=== PATIENT | female | born 1935 | race Caucasian/White ===

== ENCOUNTER → 2017-07-30 | Outpatient (CLI) | payer MEDICARE, OTHER ==
[2017-07-30 11:01] LABS: ABSOLUTE EOSINOPHILS # (AUTO) 0.1 10^3/uL (0.0-0.6); ABSOLUTE LYMPHOCYTES (AUTO) 2.6 10^3/uL (0.5-4.7); ABSOLUTE MONOCYTES (AUTO) 0.6 10^3/uL (0.1-1.4); ABSOLUTE NEUT (AUTO) 4.8 10^3/uL (1.7-8.2); BASOPHILS % (AUTO) 0.5 % (0-2); HEMATOCRIT 42.4 % (36.0-47.0); HEMOGLOBIN 13.9 g/dL (12.0-15.5); LYMPHOCYTES % (AUTO) 31.7 % (13-45); MEAN CORPUSCULAR HEMOGLOBIN 30.1 pg (27.0-33.4); MEAN CORPUSCULAR HGB CONC 32.9 g/dL (32.0-36.0); MEAN CORPUSCULAR VOLUME 91 fl (80-97); MONOCYTES % (AUTO) 7.9 % (3-13); PLATELET COUNT 221 10^3/uL (150-450); RED BLOOD COUNT 4.63 10^6/uL (3.72-5.28); RED CELL DISTRIBUTION WIDTH 13.6 % (11.5-14.0); SEGMENTED NEUTROPHILS % (AUTO) 58.9 % (42-78); TOTAL CELLS COUNTED % (AUTO) 100 %; WHITE BLOOD COUNT 8.1 10^3/uL (4.0-10.5)
[2017-07-30 11:32] LABS: ALANINE AMINOTRANSFERASE 38 U/L (9-52); ALBUMIN 4.5 g/dL (3.5-5.0); ALKALINE PHOSPHATASE 86 U/L (38-126); ANION GAP 8 (5-19); ASPARTATE AMINO TRANSFERASE 32 U/L (14-36); BILIRUBIN,DIRECT 0.3 mg/dL (0.0-0.4); BILIRUBIN,TOTAL 0.5 mg/dL (0.2-1.3); BLOOD UREA NITROGEN 18 mg/dL (7-20); CALCIUM 9.7 mg/dL (8.4-10.2); CARBON DIOXIDE 34 mmol/L (22-30); CHLORIDE 101 mmol/L (98-107); CHOLESTEROL 256.28 mg/dL (0-200); GLUCOSE 92 mg/dL (75-110); POTASSIUM 4.4 mmol/L (3.6-5.0); SODIUM 143.2 mmol/L (137-145); TOTAL PROTEIN 7.6 g/dL (6.3-8.2); TRIGLYCERIDES 135 mg/dL (<150)
[2017-07-30 11:47] LABS: DIRECT LDL 134 mg/dL (<100)
== END ==
LOC: OD 10:09
PROVIDERS: ATTEND Internal Medicine
DX: I10 Essential (primary) hypertension (principal); E78.5 Hyperlipidemia, unspecified; R53.83 Other fatigue; K21.9 Gastro-esophageal reflux disease without esophagitis; M19.90 Unspecified osteoarthritis, unspecified site
CPT/HCPCS: 36415; 80053; 80061; 84443; 85025

== ENCOUNTER → 2017-08-07 | Outpatient (CLI) | payer MEDICARE, OTHER | LOC: OD 13:44 | PROVIDERS: ATTEND Internal Medicine | DX: E03.9 Hypothyroidism, unspecified (principal) | CPT/HCPCS: 36415; 84443 ==

== ENCOUNTER → 2017-10-14 | Outpatient (CLI) | payer MEDICARE, OTHER | LOC: OD 10:23 | PROVIDERS: ATTEND Internal Medicine | DX: E03.9 Hypothyroidism, unspecified (principal) | CPT/HCPCS: 36415; 84443 ==

== ENCOUNTER → 2018-03-03 | Outpatient (CLI) | payer MEDICARE, OTHER | LOC: OD 13:28 | PROVIDERS: ATTEND Internal Medicine | DX: E03.9 Hypothyroidism, unspecified (principal) | CPT/HCPCS: 36415; 84443 ==

== ENCOUNTER 2018-08-06 14:15 | Inpatient (IN) | payer MEDICARE, OTHER ==
[2018-08-06] MEDS ORDERED: ASPIRIN 81 MG TABLET, CHEWABLE PO ONE (14:55)
--- NOTE | 2018-08-06 15:35 | RADIOLOGY REPORT (SQ) ---
EXAM DESCRIPTION: CHEST SINGLE VIEW COMPLETED DATE/TIME: 08/06/2018 3:26 pm REASON FOR STUDY: chest pain COMPARISON: 05/07/2011 EXAM PARAMETERS: NUMBER OF VIEWS: One view. TECHNIQUE: Single frontal radiographic view of the chest acquired. RADIATION DOSE: NA LIMITATIONS: None. FINDINGS: LUNGS AND PLEURA: Apical scarring. No consolidation or effusions. No pneumothorax. MEDIASTINUM AND HILAR STRUCTURES: No masses. Contour normal. HEART AND VASCULAR STRUCTURES: Heart normal in size. Normal vasculature. BONES: No acute findings. HARDWARE: None in the chest. OTHER: No other significant finding. IMPRESSION: Scarring in the lung apices. No acute findings. TECHNICAL DOCUMENTATION: JOB ID: [id number] [employer]- All Rights Reserved Reading location - IP/workstation name: [email or web address]
[2018-08-06 15:52] LABS: ABSOLUTE EOSINOPHILS # (AUTO) 0.1 10^3/uL (0.0-0.6); ABSOLUTE LYMPHOCYTES (AUTO) 1.8 10^3/uL (0.5-4.7); ABSOLUTE MONOCYTES (AUTO) 0.6 10^3/uL (0.1-1.4); ABSOLUTE NEUT (AUTO) 4.4 10^3/uL (1.7-8.2); BASOPHILS % (AUTO) 0.5 % (0-2); EOSINOPHILS % (AUTO) 0.8 % (0-6); HEMATOCRIT 40.6 % (36.0-47.0); HEMOGLOBIN 13.9 g/dL (12.0-15.5); LYMPHOCYTES % (AUTO) 26.2 % (13-45); MEAN CORPUSCULAR HEMOGLOBIN 31.9 pg (27.0-33.4); MEAN CORPUSCULAR HGB CONC 34.2 g/dL (32.0-36.0); MEAN CORPUSCULAR VOLUME 93 fl (80-97); MONOCYTES % (AUTO) 8.8 % (3-13); PLATELET COUNT 184 10^3/uL (150-450); RED BLOOD COUNT 4.35 10^6/uL (3.72-5.28); RED CELL DISTRIBUTION WIDTH 13.2 % (11.5-14.0); SEGMENTED NEUTROPHILS % (AUTO) 63.7 % (42-78); TOTAL CELLS COUNTED % (AUTO) 100 %; WHITE BLOOD COUNT 6.9 10^3/uL (4.0-10.5)
[2018-08-06 16:15] LABS: ALANINE AMINOTRANSFERASE 21 U/L (9-52); ALBUMIN 4.6 g/dL (3.5-5.0); ALKALINE PHOSPHATASE 76 U/L (38-126); ANION GAP 8 (5-19); ASPARTATE AMINO TRANSFERASE 29 U/L (14-36); BILIRUBIN,DIRECT 0.1 mg/dL (0.0-0.4); BILIRUBIN,TOTAL 0.3 mg/dL (0.2-1.3); BLOOD UREA NITROGEN 20 mg/dL (7-20); CARBON DIOXIDE 36 mmol/L (22-30); CHLORIDE 97 mmol/L (98-107); CREATINE KINASE 83 U/L (30-135); GLUCOSE 102 mg/dL (75-110); POTASSIUM 3.9 mmol/L (3.6-5.0); SODIUM 141.3 mmol/L (137-145); TOTAL PROTEIN 7.3 g/dL (6.3-8.2)
[2018-08-06 16:27] LABS: CREATINE KINASE MB 1.29 ng/mL (<4.55); TROPONIN I 0.013 ng/mL
--- NOTE | 2018-08-06 17:24 | ER Document Report ---
ED Cardiac - General Chief Complaint: Chest Pain Stated Complaint: CHEST PAIN Time Seen by Provider: 08/06/18 14:48 Primary Care Provider: CHANTEL MURDOCK MD [Primary Care Provider] - Follow up as needed Notes: This is a pleasant 83-year-old female patient emergency department chief complaint of chest pain. Patient states that chest pain has been on and off for the last couple of weeks but got worse today. Worse with exertion. States that every time she has had the chest pain she was ambulating. Patient has uncontrolled hypertension with blood pressures as high as 220/120. States that today the pain was in the central portion of her chest and upper abdomen and radiated to her back in a very sharp fashion and then up into both arms and into her neck. States that she has been taking all of her medications as instructed. Has a caregiver. [place] short of breath as well. Did not pass out. Currently symptoms are improved. TRAVEL OUTSIDE OF THE [place] IN LAST 30 DAYS: No - HPI Patient complains to provider of: Chest pain, Chest tightness, Shortness of breath Is the pain a: New problem Chest pain location: Substernal, Under breast Quality of pain: Burning, Sharp Chest pain radiation location: Left shoulder, Right shoulder, Back Severity now: None Severity at worst: Moderate Pain level currently: 2 Chest pain precipitating factors: Physical Exertion Cardiac risk factors: Hypertension Associated symptoms: Shortness of breath Exacerbated by: Activity Relieved by: Rest - Related Data Allergies/Adverse Reactions: sertraline HCl [From Zoloft] Allergy (Unknown, Verified 08/06/18 14:18) prochlorperazine edisylate [From Compazine] Allergy (Verified 08/06/18 14:18) prochlorperazine maleate [From Compazine] Allergy (Verified 08/06/18 14:18) Past Medical History - General Information source: Patient - Social History Smoking Status: Never Smoker Chew tobacco use (# tins/day): No Frequency of alcohol use: None Drug Abuse: None Lives with: Alone Family History: Reviewed & Not Pertinent Patient has suicidal ideation: No Patient has homicidal ideation: No - Past Medical History Cardiac Medical History: Reports: Hx Hypertension Denies: Hx Heart Attack Pulmonary Medical History: Reports: Hx Asthma - ALLERGY RELATED Denies: Hx Tuberculosis Neurological Medical History: Denies: Hx Cerebrovascular Accident, Hx Seizures Renal/ Medical History: Denies: Hx Peritoneal Dialysis GI Medical History: Reports: Hx Gastroesophageal Reflux Disease. Denies: Hx Hepatitis, Hx Hiatal Hernia, Hx Ulcer Psychiatric Medical History: Reports: Hx Depression Infectious Medical History: Denies: Hx Hepatitis Past Surgical History: Reports: Hx Cholecystectomy, Hx Hysterectomy, Hx Tonsillectomy. Denies: Hx Mastectomy, Hx Open Heart Surgery, Hx Pacemaker - Immunizations Hx Diphtheria, Pertussis, Tetanus Vaccination: No - unknown Hx Pneumococcal Vaccination: 05/03/09 Review of Systems - Review of Systems Notes: Constitutional: denies: Chills, Diaphoresis, Fever, Malaise, Weakness EENT: denies: Eye discharge, Blurred vision, Tearing, Double vision, Nose congestion, Nose discharge, Throat swelling, Mouth pain Cardiovascular: denies: Palpitations, Heart racing, Orthopnea,+ Dyspnea, +Chest pain Respiratory: denies: Cough, Hurts to breathe, Wheezing, Shortness of breath Gastrointestinal: denies: Abdominal pain, Diarrhea, Nausea, Vomiting, Black stools, bright red blood in stool Genitourinary: denies: Burning, Dysuria, Discharge, Frequency, Flank pain, [place]rés tur[place] Musculoskeletal: denies: Joint pain, Joint swelling, Muscle pain, Muscle stiffness, back pain Hematologic/Lymphatic: denies: Anemia, Easy bleeding, Easy bruising, Blood clots Neurological/Psychological: denies: Confusion, Dementia, Depression, Loss of consciousness Skin: No lesions, no masses, no skin breakdown, no abscesses Physical Exam - Vital signs Vitals: Temp Pulse Resp BP Pulse Ox 97.6 F 91 17 193/96 H 100 08/06/18 14:24 08/06/18 14:24 08/06/18 14:24 08/06/18 14:24 08/06/18 14:24 Interpretation: Tachycardic, Tachypneic - General General appearance: Appears well, Alert - HEENT Head: Normocephalic, Atraumatic Eyes: Normal Pupils: PERRL - Respiratory Respiratory status: No respiratory distress Chest status: Nontender Breath sounds: Normal Chest palpation: Normal - Cardiovascular Rhythm: Tachycardia Heart sounds: Normal auscultation Murmur: No Notes: Equal blood pressures in the bilateral upper extremities. - Abdominal Inspection: Normal Distension: No distension Bowel sounds: Normal Tenderness: Nontender Organomegaly: No organomegaly Notes: No obvious palpable masses or pulsating masses. - Back Back: Normal, Nontender - Extremities General upper extremity: Normal inspection, Nontender, Normal color, Normal ROM, Normal temperature General lower extremity: Normal inspection, Nontender, Normal color, Normal ROM, Normal temperature, Normal weight bearing. No: Gary's sign - Neurological Neuro grossly intact: Yes Cognition: Normal Orientation: AAOx4 [place] Coma Scale Eye Opening: Spontaneous [place] Coma Scale Verbal: Oriented Michael Coma Scale Motor: Obeys Commands Michael Coma Scale Total: 15 Speech: Normal Motor strength normal: LUE, RUE, LLE, RLE Sensory: Normal - Psychological Associated symptoms: Normal affect, Normal mood - Skin Skin Temperature: Warm Skin Moisture: Dry Skin Color: Normal Course - Re-evaluation Re-evalutation: 08/06/18 18:33 Patient has extremely elevated blood pressure. Blood pressure equal in the upper extremities however based on the fact the patient has this exquisitely high blood pressure with sharpness radiating to her back I am concerned about her aorta. Chest x-ray looks okay but she needs to have an assessment of her aorta to rule out dissection. Currently her pain is much improved. I am going to order a CTA of the chest and aorta to make sure that there is no issues there. First set of labs are unremarkable. We will repeat that at 4-hour intervals. Anticipate patient will likely need to be admitted for hypertensive emergency as well as chest pain. Laboratory 08/06/18 08/06/18 08/06/18 15:33 15:33 15:33 WBC 6.9 RBC 4.35 Hgb 13.9 Hct 40.6 MCV 93 MCH 31.9 MCHC 34.2 RDW 13.2 Plt Count 184 Seg Neutrophils % 63.7 Lymphocytes % 26.2 Monocytes % 8.8 Eosinophils % 0.8 Basophils % 0.5 Absolute Neutrophils 4.4 Absolute Lymphocytes 1.8 Absolute Monocytes 0.6 Absolute Eosinophils 0.1 Absolute Basophils 0.0 Sodium 141.3 Potassium 3.9 Chloride 97 L Carbon Dioxide 36 H Anion Gap 8 BUN 20 Creatinine 0.82 Est GFR ( Amer) > 60 Est GFR (Non-Af Amer) > 60 Glucose 102 Calcium 10.0 Total Bilirubin 0.3 Direct Bilirubin 0.1 Neonat Total Bilirubin Not Reportable Neonat Direct Bilirubin Not Reportable Neonat Indirect Bili Not Reportable AST 29 ALT 21 Alkaline Phosphatase 76 Creatine Kinase 83 CK-MB (CK-2) 1.29 Troponin I 0.013 Total Protein 7.3 Albumin 4.6 08/06/18 20:29 Patient returned back from CT scan and a rapid response was called to the room. Patient apparently passed out when going to the bathroom. Did not fall and hit her head. This was a witnessed syncopal episode. She did not hit the ground. Stat EKG was performed. no signs of significant pathology. CT scan 08/06/18 21:34 Chest X-Ray 08/06/18 14:55 IMPRESSION: Scarring in the lung apices. No acute findings. Abdomen/Pelvis CTA 08/06/18 18:09 IMPRESSION: Small hiatal hernia. Moderate amount of gas and fluid are in the esophagus. There is constipation which may explain apparent functional partial obstruction of the small bowel, versus ileus. No transition point is identified. Narrowing of the AMANDA origin. See additional findings above. Chest/Abdomen CTA 08/06/18 18:09 IMPRESSION: Small hiatal hernia. Moderate amount of gas and fluid are in the esophagus. There is constipation which may explain apparent functional partial obstruction of the small bowel, versus ileus. No transition point is identified. Narrowing of the AMANDA origin. See additional findings above. - Vital Signs Vital signs: Temp Pulse Resp BP Pulse Ox 97.6 F 91 14 149/88 H 95 08/06/18 14:24 08/06/18 14:24 08/06/18 20:50 08/06/18 20:50 08/06/18 20:50 - Laboratory Result Diagrams: 08/06/18 15:33 08/06/18 15:33 Laboratory results interpreted by me: 08/06/18 15:33 Chloride 97 L Carbon Dioxide 36 H Critical Care Note - Critical Care Note Total time excluding time spent on procedures (mins): 45 Comments: Hypertensive, hypotensive, Discharge - Discharge Clinical Impression: Hypertensive emergency, Syncope and collapse Chest pain Qualifiers: Chest pain type: unspecified Qualified Code(s): R07.9 - Chest pain, unspecified Condition: Good Disposition: ADMITTED INPATIENT [facility] Unit Admitted: IMCU Referrals: CHANTEL MURDOCK MD [Primary Care Provider] - Follow up as needed
[2018-08-06] MEDS ORDERED: CLONIDINE HCL 0.1 MG TABLET PO ONE (17:25)
--- NOTE | 2018-08-06 18:13 | EKG REPORT ---
SEVERITY:- ABNORMAL ECG - SINUS RHYTHM LEFT ATRIAL ABNORMALITY : Confirmed by: Jenny Ball MD 06-Aug-2018 18:13:01
[2018-08-06 19:57] LABS: APPEARANCE,URINE CLEAR; BILIRUBIN,URINE NEGATIVE (NEGATIVE); COLOR,URINE STRAW; GLUCOSE, URINE NEGATIVE (NEGATIVE); KETONES,URINE NEGATIVE (NEGATIVE); LEUKOCYTE ESTERASE,URINE NEGATIVE (NEGATIVE); NITRITE,URINE NEGATIVE (NEGATIVE); PROTEIN,URINE NEGATIVE (NEGATIVE); URINE SPECIFIC GRAVITY 1.008; UROBILINOGEN,URINE NEGATIVE mg/dL (<2.0)
--- NOTE | 2018-08-06 20:46 | RADIOLOGY REPORT (SQ) ---
EXAM DESCRIPTION: CT ABDOMEN PELVIS WITHOUT THEN WITH IV CONTRAST COMPLETED DATE/TME: 08/06/2018 18:09 CLINICAL HISTORY: 83 years, Female, Extremely high blood pressure with cP radi to back COMPARISON: CT CHEST ANGIOGRAPHY WITHOUT THEN WITH IV CONTRAST CT abdomen and pelvis with IV contrast. COMPLETED DATE/TME: 08/06/2018 18:09 CLINICAL HISTORY: 83 years, Female, Extremely high blood pressure with cP radi to back COMPARISON: None. TECHNIQUE: Images stored on PACS. All CT scanners at this facility use dose modulation, iterative reconstruction, and/or weight based dosing when appropriate to reduce radiation dose to as low as reasonably achievable (ALARA). [facility]: Dose Right [facility]: CareDose [facility]: Dose Right [facility]: Teradose 4D [facility]: MADS LIMITATIONS: None. PROCEDURE: CLINICAL HISTORY: 83 years Female Extremely high blood pressure with cP radi to back COMPARISON: None. TECHNIQUE: Contiguous axial images were obtained through the chest during the infusion of IV contrast. Reformatted images obtained. MIP reformatted images obtained. This exam was performed according to our department optimization program which includes automated exposure control, adjustment of the mA and/or kv according to patient size and/or use of iterative reconstruction technique. FINDINGS: There is a moderate amount of gas and fluid in the esophagus throughout its visualized length. There is bilateral dependent atelectasis. Gallbladder is surgically absent. There is a small hiatal hernia. The pancreas demonstrates atrophy. There is moderate stool in the colon. There is colonic diverticulosis. Multiple loops of small bowel are mildly dilated and gas-filled. No transition point is seen. There is approximately 70% narrowing of the origin of the AMANDA. There is calcification at the origins of the renal arteries, limiting detail. There is approximately 40% narrowing of the origin of the right renal artery and 20% narrowing of the origin of the left renal artery. No evidence of acute appendicitis. Moderate stool is in the rectum. No other acute abnormality of the abdominal or pelvic viscera. The lungs are otherwise clear. No pneumothorax is seen. Heart size is normal. No pleural effusions. No lymphadenopathy. No PE is seen. No evidence of aortic aneurysm. No other significant abnormality. IMPRESSION: Small hiatal hernia. Moderate amount of gas and fluid are in the esophagus. There is constipation which may explain apparent functional partial obstruction of the small bowel, versus ileus. No transition point is identified. Narrowing of the AMANDA origin. See additional findings above.
[2018-08-06] MEDS ORDERED: NORMAL SALINE 500 ML IV ONE (21:36)
[2018-08-06] MEDS ORDERED: TEMAZEPAM 15 MG CAPSULE PO PRN (22:29)
[2018-08-06] MEDS ORDERED: MAG HYDROX/AL HYDROX/SIMETH SUSP 30 ML UDCUP PO PRN (22:29)
[2018-08-06] MEDS ORDERED: MAGNESIUM HYDROXIDE SUSP 30 ML UDCUP PO PRN (22:29)
[2018-08-06] MEDS ORDERED: LEVALBUTEROL HCL NEB 1.25 MG/3 ML AMPUL NEB PRN (22:35)
[2018-08-06] MEDS ORDERED: MORPHINE SULFATE 10 MG/ML INJ IV PRN ×4 (22:35→23:06)
[2018-08-06] MEDS ORDERED: DIAZEPAM INJ 10 MG/2 ML DISP.SYRIN IV PRN (22:35)
[2018-08-06] MEDS ORDERED: ACETAMINOPHEN 325 MG TABLET PO PRN (22:35)
[2018-08-06] MEDS ORDERED: NITROGLYCERIN 0.4 MG/TAB 25 TAB/BOTTLE SL PRN (22:35)
[2018-08-06] MEDS ORDERED: FAMOTIDINE 20 MG TABLET PO ONE (23:10)
[2018-08-06] MEDS ORDERED: METOCLOPRAMIDE HCL 10 MG TABLET PO ONE (23:10)
[2018-08-06] MEDS ORDERED: MONTELUKAST SODIUM 10 MG TABLET PO ONE (23:10)
[2018-08-06] MEDS ORDERED: HEPARIN SOD (PORCINE) 5,000 UNIT/ML 1 ML SYRINGE SUBCUT ONE (23:10)
--- NOTE | 2018-08-07 00:07 | PDOC H&P ---
History of Present Illness Admission Date/PCP: CHANTEL MURDOCK MD Patient complains of: Chest pain History of Present Illness: RHODA ALBRIGHT is a 83 year old female presented to the emergency room with a 7-day history of intermittent chest pains. She admitted several episodes of chest pain over the last 7 days, occurring once a day at various times usually associated with activity, becoming longer in duration and more intense over time. Her last episode was earlier today prior to coming to the emergency room and was described as a continuous, moderately severe, heavy pressure sensation in her substernal chest and epigastric area with radiation as a sharp, severe pain to her back and then up into her neck and shoulders. The pain generally occurs with activity and is resolved by rest. Her pain was accompanied by dyspnea which also resolved after a short period of rest. She admits a history of previous hypertensive crises but not any prior episodes of chest pain. She has not identified any additional aggravating or alleviating factors for her chest pain. In the emergency room her chest pain was resolved prior to her arrival but she was noted to be significantly hypertensive with a blood pressure of 220/120. During her ER evaluation she suffered a syncopal episode and became hypotensive at that time. Her blood pressure recovered with IV fluids and close observation over a very brief interval. Her initial cardiac enzymes and EKG were negative for myocardial ischemia or injury. Patient was subsequently admitted to the hospital for further evaluation and treatment. Past Medical History Cardiac Medical History: Reports: Hypertension Denies: Atrial Fibrillation, Coronary Artery Disease, DVT, Myocardial Infarction, Pulmonary Embolism Pulmonary Medical History: Reports: Asthma - ALLERGY RELATED Denies: Chronic Obstructive Pulmonary Disease (COPD), Respiratory Failure, Tuberculosis EENT Medical History: Denies: Cataracts, Nose - Nasal polyps Neurological Medical History: Denies: Hemorrhagic CVA, Ischemic CVA, Seizures Endocrine Medical History: Reports: Hypothyroidism Denies: Diabetes Mellitus Type 1, Diabetes Mellitus Type 2, Hyperthyroidism, Obesity Renal/ Medical History: Denies: Chronic Kidney Disease, Nephrolithiasis Malignancy Medical History: Reports: None GI Medical History: Reports: Gastroesophageal Reflux Disease Denies: Cirrhosis, Hepatitis, Hiatal Hernia Musculoskeltal Medical History: Denies: Arthritis, Gout Skin Medical History: Denies: Eczema, Psoriasis Psychiatric Medical History: Reports: Depression Denies: Alcohol Dependency, Substance Abuse, Tobacco Dependency Traumatic Medical History: Reports: None Hematology: Denies: Anemia, Bleeding Tendencies Infectious Medical History: Denies: None Past Surgical History Past Surgical History: Reports: Cholecystectomy, Hysterectomy, Tonsillectomy Social History Information Source: Patient Lives with: Alone Smoking Status: Never Smoker Frequency of Alcohol Use: None Hx Recreational Drug Use: No Drugs: None Hx Prescription Drug Abuse: No - Advance Directive Resuscitation Status: Full Code Surrogate healthcare decision maker:: Her son Omi Family History Family History: Hypertension Parental Family History Reviewed: Yes Children Family History Reviewed: No Sibling(s) Family History Reviewed.: Yes Medication/Allergy Home Medications: Montelukast Sodium [Singulair 10 Mg Tablet] 10 mg PO QHS 05/03/11 Verapamil HCl [Isoptin Sr] 360 mg PO QAM 10/09/12 Candesartan/Hydrochlorothiazid [Candesartan-Hctz 16-12.5 mg Tb] 1 tab PO DAILY 08/06/18 Ergocalciferol (Vitamin D2) [Drisdol 50,000 unit (1.25MG) Capsule] 1 tab PO DAILY PRN 08/06/18 Fluticasone Furoate [Flonase Sensimist] 1 spray IH DAILY 08/06/18 Levothyroxine Sodium [Synthroid 0.05 mg Tablet] 1 tab PO DAILY 08/06/18 Allergies/Adverse Reactions: sertraline HCl [From Zoloft] Allergy (Unknown, Verified 08/06/18 14:18) prochlorperazine maleate [From Compazine] Allergy (Verified 08/06/18 14:18) Review of Systems Constitutional: ABSENT: chills, fever(s) Eyes: ABSENT: visual disturbances, other - Ocular pain Ears: ABSENT: hearing changes, other - Ear pain Nose, Mouth, and Throat: ABSENT: mouth pain, sore throat Cardiovascular: PRESENT: as per HPI, chest pain, dyspnea on exertion. ABSENT: edema, orthropnea, palpitations Respiratory: ABSENT: cough, dyspnea Gastrointestinal: PRESENT: as per HPI, abdominal pain. ABSENT: constipation, diarrhea, nausea, vomiting Genitourinary: ABSENT: dysuria, hematuria Musculoskeletal: ABSENT: deformity, joint swelling Integumentary: ABSENT: pruritus, rash Neurological: ABSENT: confusion, convulsions, focal weakness, memory loss Psychiatric: ABSENT: anxiety, depression Endocrine: ABSENT: cold intolerance, heat intolerance Hematologic/Lymphatic: ABSENT: easy bleeding, easy bruising Physical Exam Vital Signs: Temp Pulse Resp BP Pulse Ox 97.6 F 91 14 149/88 H 95 08/06/18 14:24 08/06/18 14:24 08/06/18 20:50 08/06/18 20:50 08/06/18 20:50 Intake & Output 08/04/18 08/05/18 08/06/18 23:59 23:59 23:59 Intake Total 500 Balance 500 Weight 48.1 kg General appearance: PRESENT: no acute distress, cooperative Head exam: PRESENT: atraumatic, normocephalic Eye exam: PRESENT: conjunctiva pink. ABSENT: scleral icterus Ear exam: PRESENT: normal external ear exam. ABSENT: drainage Mouth exam: PRESENT: dry mucosa, neck supple Neck exam: ABSENT: thyromegaly, tracheal deviation Respiratory exam: PRESENT: clear to auscultation david, symmetrical, unlabored Cardiovascular exam: PRESENT: RRR. ABSENT: clicks, gallop, rubs Pulses: PRESENT: normal radial pulses, normal dorsalis pedis pul Vascular exam: PRESENT: normal capillary refill. ABSENT: pallor GI/Abdominal exam: PRESENT: normal bowel sounds, soft Rectal exam: PRESENT: deferred Extremities exam: ABSENT: joint swelling, pedal edema Musculoskeletal exam: ABSENT: deformity, dislocation Neurological exam: PRESENT: alert, oriented to person, oriented to place, orie nted to time, oriented to situation, CN II-XII grossly intact. ABSENT: motor sensory deficit Psychiatric exam: PRESENT: appropriate affect, normal mood Skin exam: PRESENT: dry, intact, warm. ABSENT: jaundice, rash, urticaria Results Laboratory Results: 08/06/18 15:33 08/06/18 15:33 08/06/18 08/06/18 08/06/18 15:33 15:33 16:47 WBC 6.9 RBC 4.35 Hgb 13.9 Hct 40.6 MCV 93 MCH 31.9 MCHC 34.2 RDW 13.2 Plt Count 184 Seg Neutrophils % 63.7 Lymphocytes % 26.2 Monocytes % 8.8 Eosinophils % 0.8 Basophils % 0.5 Absolute Neutrophils 4.4 Absolute Lymphocytes 1.8 Absolute Monocytes 0.6 Absolute Eosinophils 0.1 Absolute Basophils 0.0 Sodium 141.3 Potassium 3.9 Chloride 97 L Carbon Dioxide 36 H Anion Gap 8 BUN 20 Creatinine 0.82 Est GFR ( Amer) > 60 Est GFR (Non-Af Amer) > 60 Glucose 102 Calcium 10.0 Total Bilirubin 0.3 AST 29 ALT 21 Alkaline Phosphatase 76 Total Protein 7.3 Albumin 4.6 Urine Color STRAW Urine Appearance CLEAR Urine pH 8.0 Ur Specific [place] 1.008 Urine Protein NEGATIVE Urine Glucose (UA) NEGATIVE Urine Ketones NEGATIVE Urine Blood NEGATIVE Urine Nitrite NEGATIVE Ur Leukocyte Esterase NEGATIVE Urine WBC (Auto) 0 Urine RBC (Auto) 2 08/06/18 08/06/18 08/06/18 15:33 15:33 20:15 Creatine Kinase 83 CK-MB (CK-2) 1.29 Troponin I 0.013 0.020 Impressions: Chest X-Ray 08/06/18 14:55 IMPRESSION: Scarring in the lung apices. No acute findings. Abdomen/Pelvis CTA 08/06/18 18:09 IMPRESSION: Small hiatal hernia. Moderate amount of gas and fluid are in the esophagus. There is constipation which may explain apparent functional partial obstruction of the small bowel, versus ileus. No transition point is identified. Narrowing of the AMANDA origin. See additional findings above. Chest/Abdomen CTA 08/06/18 18:09 IMPRESSION: Small hiatal hernia. Moderate amount of gas and fluid are in the esophagus. There is constipation which may explain apparent functional partial obstruction of the small bowel, versus ileus. No transition point is identified. Narrowing of the AMANDA origin. See additional findings above. Assessment & Plan - Diagnosis (1) Hypertensive emergency Is this a current diagnosis for this admission?: Yes Plan: The patient's blood pressure will be monitored closely throughout the remainder of her hospital course with appropriate adjustments in her medications as req uired. After a long discussion with the patient feel there is a high likelihood that there is a strong underlying emotional component to her severe episodes of hypertension. To that end I have initiated therapy with clonazepam 0.5 mg p.o. twice daily realizing that dosage adjustment will most likely be required. Patient was significantly anxious and nonresponsive to antihypertensive medications until she had her syncopal episode which may well have been a result of her anxiety and hyperventilation. Immediately after her syncopal episode she had some minimal hypotension which recovered in a very short interval also suggesting that she was most likely sprinting syncope based on her anxiety and hyperventilation. (2) Syncope and collapse Is this a current diagnosis for this admission?: Yes Plan: Patient will be observed closely on telemetry status. She will receive IV fluids and other supportive and symptomatic cares as required. Further evaluation will be undertaken as appropriate. Patient was significantly anxious and nonresponsive to antihypertensive medications until she had her syncopal episode which may well have been a result of her anxiety and hyperventilation. Immediately after her syncopal episode she had some minimal hypotension which recovered in a very short interval also suggesting that she was most likely sprinting syncope based on her anxiety and hyperventilation. (3) Chest pain Qualifiers: Chest pain type: unspecified Qualified Code(s): R07.9 - Chest pain, unspecified Is this a current diagnosis for this admission?: Yes Plan: Patient's chest pain will be evaluated utilizing serial cardiac enzymes and repeat EKGs as appropriate. Additionally she will be on potline monitor and daily CBC and metabolic profile determinations will be made. Patient's pain will be treated with morphine sulfate 2-4 mg IV every 2 hours as needed on a sliding scale basis for control of chest pain. (4) Hypothyroidism Qualifiers: Hypothyroidism type: unspecified Qualified Code(s): E03.9 - Hypothyroidism, unspecified Is this a current diagnosis for this admission?: Yes Plan: Patient's usual thyroid replacement will be continued during her hospital course. A thyroid profile will be obtained to evaluate efficacy of therapy. - Time Time Spent: 30 to 50 Minutes Critical Time spent with patient: Less than 15 minutes Medications reviewed and adjusted accordingly: Yes Anticipated discharge: Home - Inpatient Certification Based on my medical assessment, after consideration of the patient's comorbidit ies, presenting symptoms, or acuity I expect that the services needed warrant INPATIENT care.: Yes I certify that my determination is in accordance with my understanding of Me vanessa's requirements for reasonable and necessary INPATIENT services [42 CFR 412.3e].: Yes Medical Necessity: Significant Comorbidiites Make Outpatient Treatment Too Risky, Need Close Monitoring Due to Risk of Patient Decompensation, Need For Continuous Telemetry Monitoring, Need for Pain Control, Risk of Complication if Not Cared For in Hospital
[2018-08-07] MEDS ORDERED: CLONAZEPAM 1 MG TABLET PO ONE (00:15)
[2018-08-07 02:58] LABS: CREATINE KINASE MB 1.76 ng/mL (<4.55); TROPONIN I 0.04 ng/mL
[2018-08-07] MEDS: HEPARIN SOD (PORCINE) 5,000 UNIT/ML 1 ML SYRINGE SUBCUT SCH ×3 (06:01→22:26)
[2018-08-07] MEDS: LEVOTHYROXINE SODIUM 0.05 MG TABLET PO SCH (06:01)
--- NOTE | 2018-08-07 07:29 | EKG REPORT ---
SEVERITY:- ABNORMAL ECG - SINUS RHYTHM LEFT ATRIAL ABNORMALITY PROBABLE LEFT VENTRICULAR HYPERTROPHY : Confirmed by: Jenny Ball MD 07-Aug-2018 07:29:20
[2018-08-07] MEDS ORDERED: METOCLOPRAMIDE HCL 10 MG TABLET PO SCH (08:00)
[2018-08-07] MEDS ORDERED: FAMOTIDINE 20 MG TABLET PO SCH (08:00)
[2018-08-07 08:44] LABS: HEMOGLOBIN 12.8 g/dL (12.0-15.5); MEAN CORPUSCULAR HEMOGLOBIN 32.2 pg (27.0-33.4); MEAN CORPUSCULAR HGB CONC 34.5 g/dL (32.0-36.0); MEAN CORPUSCULAR VOLUME 93 fl (80-97); PLATELET COUNT 169 10^3/uL (150-450); RED BLOOD COUNT 3.96 10^6/uL (3.72-5.28); RED CELL DISTRIBUTION WIDTH 13.1 % (11.5-14.0); WHITE BLOOD COUNT 6.7 10^3/uL (4.0-10.5)
--- NOTE | 2018-08-07 08:55 | PDOC PROGRESS REPORT ---
Subjective Progress Note for:: 08/07/18 Subjective:: The patient states to feel much better. She denies any further chest pain. Her lightheadedness last night in the emergency room was most probably related to blood pressure medication and going to the bathroom and standing up and trying to return to the bed. She did not have any loss of consciousness. Her blood pressure is better controlled this morning. Reason For Visit: CHEST PAIN,ACUTE HYPERTENSIVE EMERGENCY,ACUTE Physical Exam Vital Signs: Temp Pulse Resp BP Pulse Ox 99.8 F 80 18 165/77 H 96 08/07/18 07:48 08/07/18 07:48 08/07/18 07:48 08/07/18 07:48 08/07/18 07:48 Intake & Output 08/06/18 08/07/18 08/08/18 06:59 06:59 06:59 Intake Total 500 Balance 500 Weight 48.1 kg General appearance: PRESENT: mild distress Head exam: PRESENT: atraumatic Eye exam: PRESENT: conjunctiva pink Neck exam: PRESENT: carotid bruit. ABSENT: JVD Respiratory exam: PRESENT: rhonchi Cardiovascular exam: PRESENT: RRR, +S1, +S2 GI/Abdominal exam: PRESENT: normal bowel sounds, soft Extremities exam: PRESENT: tenderness Musculoskeletal exam: PRESENT: tenderness Neurological exam: PRESENT: alert, awake Psychiatric exam: PRESENT: anxious Results Laboratory Results: 08/07/18 08:16 08/06/18 08/06/18 08/06/18 15:33 15:33 16:47 WBC 6.9 RBC 4.35 Hgb 13.9 Hct 40.6 MCV 93 MCH 31.9 MCHC 34.2 RDW 13.2 Plt Count 184 Seg Neutrophils % 63.7 Lymphocytes % 26.2 Monocytes % 8.8 Eosinophils % 0.8 Basophils % 0.5 Absolute Neutrophils 4.4 Absolute Lymphocytes 1.8 Absolute Monocytes 0.6 Absolute Eosinophils 0.1 Absolute Basophils 0.0 Sodium 141.3 Potassium 3.9 Chloride 97 L Carbon Dioxide 36 H Anion Gap 8 BUN 20 Creatinine 0.82 Est GFR ( Amer) > 60 Est GFR (Non-Af Amer) > 60 Glucose 102 Calcium 10.0 Total Bilirubin 0.3 AST 29 ALT 21 Alkaline Phosphatase 76 Total Protein 7.3 Albumin 4.6 Urine Color STRAW Urine Appearance CLEAR Urine pH 8.0 Ur Specific Mcdonough 1.008 Urine Protein NEGATIVE Urine Glucose (UA) NEGATIVE Urine Ketones NEGATIVE Urine Blood NEGATIVE Urine Nitrite NEGATIVE Ur Leukocyte Esterase NEGATIVE Urine WBC (Auto) 0 Urine RBC (Auto) 2 08/07/18 08:16 WBC 6.7 RBC 3.96 Hgb 12.8 Hct 37.0 MCV 93 MCH 32.2 MCHC 34.5 RDW 13.1 Plt Count 169 Seg Neutrophils % Lymphocytes % Monocytes % Eosinophils % Basophils % Absolute Neutrophils Absolute Lymphocytes Absolute Monocytes Absolute Eosinophils Absolute Basophils Sodium Potassium Chloride Carbon Dioxide Anion Gap BUN Creatinine Est GFR ( Amer) Est GFR (Non-Af Amer) Glucose Calcium Total Bilirubin AST ALT Alkaline Phosphatase Total Protein Albumin Urine Color Urine Appearance Urine pH Ur Specific Mcdonough Urine Protein Urine Glucose (UA) Urine Ketones Urine Blood Urine Nitrite Ur Leukocyte Esterase Urine WBC (Auto) Urine RBC (Auto) 08/06/18 08/06/18 08/06/18 15:33 15:33 20:15 Creatine Kinase 83 CK-MB (CK-2) 1.29 Troponin I 0.013 0.020 08/07/18 08/07/18 02:15 02:15 Creatine Kinase 128 CK-MB (CK-2) 1.76 Troponin I 0.040 Impressions: Chest X-Ray 08/06/18 14:55 IMPRESSION: Scarring in the lung apices. No acute findings. Abdomen/Pelvis CTA 08/06/18 18:09 IMPRESSION: Small hiatal hernia. Moderate amount of gas and fluid are in the esophagus. There is constipation which may explain apparent functional partial obstruction of the small bowel, versus ileus. No transition point is identified. Narrowing of the AMANDA origin. See additional findings above. Chest/Abdomen CTA 08/06/18 18:09 IMPRESSION: Small hiatal hernia. Moderate amount of gas and fluid are in the esophagus. There is constipation which may explain apparent functional partial obstruction of the small bowel, versus ileus. No transition point is identified. Narrowing of the AMANDA origin. See additional findings above. Assessment & Plan - Diagnosis (1) Chronic allergic rhinitis Is this a current diagnosis for this admission?: Yes Plan: The patient suffers from chronic cough. We will start her on cough medicine. (2) Elevated troponin Is this a current diagnosis for this admission?: Yes Plan: Continue monitoring. Cardiology consultation. Will consider stress test (3) DNR (do not resuscitate) Is this a current diagnosis for this admission?: Yes Plan: The patient does not want CPR. She does not want intubation. She does not want shock (4) Chest pain Qualifiers: Chest pain type: unspecified Qualified Code(s): R07.9 - Chest pain, unspecified Is this a current diagnosis for this admission?: Yes Plan: IN needs to be ruled out. (5) Hypertensive emergency Is this a current diagnosis for this admission?: Yes (6) Hypothyroidism Qualifiers: Hypothyroidism type: unspecified Qualified Code(s): E03.9 - Hypothyroidism, unspecified Is this a current diagnosis for this admission?: Yes Plan: Continue current medication
[2018-08-07] MEDS ORDERED: HYDROCODONE BIT/HOMATROPINE SYRUP 5 ML UDCUP PO PRN (08:56)
[2018-08-07] MEDS ORDERED: HYDROCODONE BIT/HOMATROPINE 5-1.5 MG TABLET PO PRN (09:02)
[2018-08-07] MEDS: HYDRALAZINE HCL 10 MG TABLET PO SCH ×2 (09:09→22:19)
[2018-08-07] MEDS: CHOLECALCIFEROL (D3) 1,000 UNIT TABLET PO SCH (09:09)
[2018-08-07] MEDS: CLONAZEPAM 1 MG TABLET PO SCH ×2 (09:09→22:19)
[2018-08-07] MEDS: HYDROCHLOROTHIAZIDE 12.5 MG TABLET PO SCH (09:09)
[2018-08-07] MEDS: ISOSORBIDE DINITRATE 10 MG TABLET PO SCH ×2 (09:10→22:19)
[2018-08-07] MEDS: VERAPAMIL HCL 180 MG TABLET.SA PO SCH (09:10)
[2018-08-07] MEDS: DOCUSATE SODIUM 100 MG CAPSULE PO SCH ×2 (09:11→17:24)
[2018-08-07] MEDS: CETIRIZINE 10 MG TABLET PO SCH (09:11)
[2018-08-07] MEDS: FAMOTIDINE 20 MG TABLET PO SCH ×2 (09:11→22:20)
[2018-08-07] MEDS: DOXYCYCLINE HYCLATE 100 MG TABLET PO SCH ×2 (09:11→22:21)
[2018-08-07] MEDS: FLUTICASONE NASAL SPRAY 50 MCG/SPRY 120 SPRAY/16 GM NASL SCH (09:11)
[2018-08-07 09:15] LABS: ANION GAP 7 (5-19); BLOOD UREA NITROGEN 19 mg/dL (7-20); CALCIUM 9.4 mg/dL (8.4-10.2); CARBON DIOXIDE 29 mmol/L (22-30); CHLORIDE 102 mmol/L (98-107); CHOLESTEROL 196.65 mg/dL (0-200); CREATINE KINASE 179 U/L (30-135); GLUCOSE 122 mg/dL (75-110); POTASSIUM 3.5 mmol/L (3.6-5.0); SODIUM 137.9 mmol/L (137-145); TRIGLYCERIDES 75 mg/dL (<150)
[2018-08-07 09:25] LABS: CREATINE KINASE MB 1.39 ng/mL (<4.55); TROPONIN I 0.022 ng/mL
[2018-08-07 09:26] LABS: DIRECT LDL 99 mg/dL (<100)
[2018-08-07] MEDS ORDERED: [UNRECOGNIZED DRUG - OTHER] PO SCH (10:00)
[2018-08-07] MEDS ORDERED: LOSARTAN POTASSIUM 50 MG TABLET PO SCH (10:00)
[2018-08-07 10:28] LABS: FREE T3 3.71 pg/mL (2.77-5.27); FREE T4 (FREE THYROXINE) 1.5 ng/dL (0.78-2.19)
[2018-08-07 10:41] LABS: THYROID STIMULATING HORMONE 2.41 uIU/mL (0.47-4.68)
[2018-08-07 15:23] LABS: CREATINE KINASE MB 1.15 ng/mL (<4.55); TROPONIN I 0.013 ng/mL
[2018-08-07 20:40] LABS: CREATINE KINASE MB 0.84 ng/mL (<4.55); TROPONIN I 0.015 ng/mL
--- NOTE | 2018-08-07 20:53 | EKG REPORT ---
SEVERITY:- BORDERLINE ECG - SINUS RHYTHM PROBABLE LEFT ATRIAL ABNORMALITY : Confirmed by: Jenny Ball MD 07-Aug-2018 20:52:28
[2018-08-07] MEDS: MONTELUKAST SODIUM 10 MG TABLET PO SCH (22:18)
--- NOTE | 2018-08-07 23:50 | PDOC CONSULTATION ---
Consultation-Blank Consultation: CARDIOLOGY CONSULTATION by Dr. Jenny Ball on 08/07/2018. Patient seen initially briefly at 8:30 AM, and subsequently in detail at 8 PM on 08/07/2018. REASON FOR CONSULTATION: Intermittent chest pains for the last 7 days and hypertensive emergency, and syncopal episode.
[2018-08-08] MEDS: LEVOTHYROXINE SODIUM 0.05 MG TABLET PO SCH (05:06)
[2018-08-08] MEDS: HEPARIN SOD (PORCINE) 5,000 UNIT/ML 1 ML SYRINGE SUBCUT SCH ×3 (05:06→21:19)
[2018-08-08 06:29] LABS: ABSOLUTE EOSINOPHILS # (AUTO) 0.1 10^3/uL (0.0-0.6); ABSOLUTE LYMPHOCYTES (AUTO) 1.9 10^3/uL (0.5-4.7); ABSOLUTE MONOCYTES (AUTO) 0.7 10^3/uL (0.1-1.4); ABSOLUTE NEUT (AUTO) 4.3 10^3/uL (1.7-8.2); BASOPHILS % (AUTO) 0.3 % (0-2); EOSINOPHILS % (AUTO) 1.2 % (0-6); HEMATOCRIT 36.5 % (36.0-47.0); HEMOGLOBIN 12.7 g/dL (12.0-15.5); LYMPHOCYTES % (AUTO) 27.2 % (13-45); MEAN CORPUSCULAR HEMOGLOBIN 32.3 pg (27.0-33.4); MEAN CORPUSCULAR HGB CONC 34.7 g/dL (32.0-36.0); MEAN CORPUSCULAR VOLUME 93 fl (80-97); PLATELET COUNT 161 10^3/uL (150-450); RED BLOOD COUNT 3.93 10^6/uL (3.72-5.28); RED CELL DISTRIBUTION WIDTH 13.1 % (11.5-14.0); SEGMENTED NEUTROPHILS % (AUTO) 61.3 % (42-78); TOTAL CELLS COUNTED % (AUTO) 100 %
[2018-08-08 06:57] LABS: ALANINE AMINOTRANSFERASE 29 U/L (9-52); ALBUMIN 3.6 g/dL (3.5-5.0); ALKALINE PHOSPHATASE 71 U/L (38-126); ANION GAP 7 (5-19); ASPARTATE AMINO TRANSFERASE 27 U/L (14-36); BILIRUBIN,DIRECT 0.1 mg/dL (0.0-0.4); BILIRUBIN,TOTAL 0.3 mg/dL (0.2-1.3); BLOOD UREA NITROGEN 27 mg/dL (7-20); CALCIUM 9.1 mg/dL (8.4-10.2); CARBON DIOXIDE 31 mmol/L (22-30); CHLORIDE 100 mmol/L (98-107); GLUCOSE 87 mg/dL (75-110); POTASSIUM 3.7 mmol/L (3.6-5.0); SODIUM 138.1 mmol/L (137-145); TOTAL PROTEIN 6.2 g/dL (6.3-8.2)
[2018-08-08] MEDS: FAMOTIDINE 20 MG TABLET PO SCH ×2 (09:44→21:22)
[2018-08-08] MEDS: DOCUSATE SODIUM 100 MG CAPSULE PO SCH ×2 (09:44→18:06)
[2018-08-08] MEDS: HYDROCHLOROTHIAZIDE 12.5 MG TABLET PO SCH (09:44)
[2018-08-08] MEDS: CHOLECALCIFEROL (D3) 1,000 UNIT TABLET PO SCH (09:44)
[2018-08-08] MEDS: CETIRIZINE 10 MG TABLET PO SCH (09:44)
[2018-08-08] MEDS: VERAPAMIL HCL 180 MG TABLET.SA PO SCH (09:45)
[2018-08-08] MEDS: HYDRALAZINE HCL 10 MG TABLET PO SCH (09:46)
[2018-08-08] MEDS: FLUTICASONE NASAL SPRAY 50 MCG/SPRY 120 SPRAY/16 GM NASL SCH (09:46)
[2018-08-08] MEDS: ISOSORBIDE DINITRATE 10 MG TABLET PO SCH (09:46)
[2018-08-08] MEDS: CLONAZEPAM 1 MG TABLET PO SCH ×2 (09:46→21:22)
[2018-08-08] MEDS: DOXYCYCLINE HYCLATE 100 MG TABLET PO SCH ×2 (09:49→21:22)
--- NOTE | 2018-08-08 12:34 | EKG REPORT ---
SEVERITY:- BORDERLINE ECG - SINUS RHYTHM PROBABLE LEFT ATRIAL ABNORMALITY : Confirmed by: Jenny Ball MD 08-Aug-2018 12:34:19
[2018-08-08] MEDS ORDERED: ISOSORBIDE MONONITRATE 60 MG TAB.ER.24H PO ONE (14:30)
--- NOTE | 2018-08-08 19:52 | Progress Note ---
Provider Note Provider Note: CARDIOLOGY PROGRESS NOTE by Dr. Jenny Ball on 08/08/2018 SUBJECTIVE: The patient has no further chest pain or discomfort. She denies any shortness of breath. There is no wheezing or symptoms of acute exacerbation of asthma. The patient denies any PND orthopnea. She still has some dizziness when she gets up, due to a blood pressure dropping. There is no TIA CVA symptoms. There is no PND orthopnea or leg edema. There is no arrhythmias seen on the monitor. PHYSICAL EXAMINATION: The patient is a frail build. But appears to be well- nourished. She appears her stated age. She is in no acute distress. She is well-groomed Selected Entries 08/08/18 07:30 Temperature 97.1 F Temperature Oral Source Pulse Rate 66 Respiratory 16 Rate Blood Pressure 140/76 H Blood Pressure 97 Mean BP Location Right Arm BP Position Supine O2 Sat by Pulse 95 Oximetry Oxygen Delivery Room Air Method HEAD: Is atraumatic normocephalic. EYES: Pupils equal round regular reactive to light accommodation. Extraocular movements are normal. There is no conjunctival pallor. There is no scleral icterus. EARS: Tympanic membranes are intact. External auditory canals are clear. NOSE: Nasal mucous membranes are without any inflammation. There is no deviated nasal septum. MOUTH: Mucous membranes of the mouth are moist. Tongue is moist. There is no ulcers. There is no bleeding from the gums. THROAT: There is no redness of the oropharynx. There is no exudates. SKIN: There is no particular ecchymosis. There is no skin rash or skin lesions. NECK: Is supple. There is no JVD. Carotids are equal there is no bruit. There is no lymphadenopathy. There is no goiter. There is no accessory muscle respiration is use. Trachea central. LUNGS: Is clear to auscultation and percussion without any rhonchi rales or wheezing. On palpation there is no chest wall tenderness. HEART: S1-S2 is heard. There is no S3 gallop. There is no S4 gallop. Systolic murmur left sternal border and the apex there is no rub. ABDOMEN: Is soft. Nontender there is no hepatosplenomegaly. Bowel sounds are well heard. There is no tender areas of masses. There is no rebound guarding or rigidity. EXTREMITIES: Femorals are well felt. There is no femoral bruits. Leg pulses well felt. There is no pedal edema. There is no DVT or cellulitis. There is no calf tenderness. There is no cyanosis or clubbing. Capillary refill is normal. PLANNER INTERNSHIP: The patient is conscious awake alert oriented x3 with no focal deficits. PSYCHIATRIC: The patient judgment insight are intact although she is slightly forgetful.. The patient does not appear to be agitated or depressed. 08/07/18 08/08/18 08/08/18 19:58 05:37 05:37 WBC 7.0 RBC 3.93 Hgb 12.7 Hct 36.5 MCV 93 MCH 32.3 MCHC 34.7 RDW 13.1 Plt Count 161 Seg Neutrophils % 61.3 Lymphocytes % 27.2 Monocytes % 10.0 Eosinophils % 1.2 Basophils % 0.3 Absolute Neutrophils 4.3 Absolute Lymphocytes 1.9 Absolute Monocytes 0.7 Absolute Eosinophils 0.1 Absolute Basophils 0.0 Sodium 138.1 Potassium 3.7 Chloride 100 Carbon Dioxide 31 H Anion Gap 7 BUN 27 H Creatinine 0.91 Est GFR (Non-Af Amer) 59 L Glucose 87 Calcium 9.1 Magnesium 2.4 H Total Bilirubin 0.3 Direct Bilirubin 0.1 Neonat Total Bilirubin Not Reportable Neonat Direct Bilirubin Not Reportable Neonat Indirect Bili Not Reportable AST 27 ALT 29 Alkaline Phosphatase 71 CK-MB (CK-2) 0.84 Troponin I 0.015 Total Protein 6.2 L Albumin 3.6 EKG: SHOWS SINUS RHYTHM. POOR PROBABLE LEFT ATRIAL ENLARGEMENT. NO ACUTE CHANGES. Chest X-Ray 08/06/18 14:55 IMPRESSION: Scarring in the lung apices. No acute findings. Abdomen/Pelvis CTA 08/06/18 18:09 IMPRESSION: Small hiatal hernia. Moderate amount of gas and fluid are in the esophagus. There is constipation which may explain apparent functional partial obstruction of the small bowel, versus ileus. No transition point is identified. Narrowing of the AMANDA origin. See additional findings above. Chest/Abdomen CTA 08/06/18 18:09 IMPRESSION: Small hiatal hernia. Moderate amount of gas and fluid are in the esophagus. There is constipation which may explain apparent functional partial obstruction of the small bowel, versus ileus. No transition point is identified. Narrowing of the AMANDA origin. See additional findings above. IMPRESSION/RECOMMENDATION: 1. Chest pain: No evidence of myocardial infarction, and no ischemic changes on the EKG. Will recommend continue the patient on aspirin, and current medications. Including verapamil. Would recommend a change the patient's isosorbide dinitrate to isosorbide mononitrate once a day. [Note Evelyn Sorbide dinitrate has to be given twice daily with the doses 6 hours apart]. Patient does have multiple CAD risk factors, namely age and hypertension. No evidence of acute myocardial infarction. Note that the chest pain may have been due to the patient's hypertensive urgency when she was admitted. 2. Syncope: Most likely secondary to sudden drop of blood pressure after blood pressure medications. portfolio consultant shows no arrhythmias. 3. Hypertension: Patient hypertension is complicated by postural hypotension. 4. Hypo-thyroidism: Continue replacement. 5. Asthma: No definite evidence of acute exacerbation of asthma., Or acute asthmatic attack. Medications reviewed. Medications readjusted. Medical decision making is of moderate to high complexity. Discussed the option of stress test with the patient and getting an echocardiogram. The patient just wants to go home, and wants to be treated medically. Will rediscuss this with the patient. The p atpaul is a full code. Her son is a surrogate healthcare decision maker. Note 40 minutes spent on this patient more than 50% time spent in direct patient care. Will follow.
[2018-08-08] MEDS: MONTELUKAST SODIUM 10 MG TABLET PO SCH (21:22)
[2018-08-09 05:34] LABS: HEMOGLOBIN 12.1 g/dL (12.0-15.5); MEAN CORPUSCULAR HEMOGLOBIN 31.9 pg (27.0-33.4); MEAN CORPUSCULAR HGB CONC 34.5 g/dL (32.0-36.0); MEAN CORPUSCULAR VOLUME 93 fl (80-97); PLATELET COUNT 158 10^3/uL (150-450); RED BLOOD COUNT 3.78 10^6/uL (3.72-5.28); RED CELL DISTRIBUTION WIDTH 13.3 % (11.5-14.0); WHITE BLOOD COUNT 7.8 10^3/uL (4.0-10.5)
[2018-08-09 05:47] LABS: ANION GAP 9 (5-19); BLOOD UREA NITROGEN 24 mg/dL (7-20); CALCIUM 9.4 mg/dL (8.4-10.2); CARBON DIOXIDE 28 mmol/L (22-30); CHLORIDE 101 mmol/L (98-107); GLUCOSE 107 mg/dL (75-110); POTASSIUM 3.5 mmol/L (3.6-5.0); SODIUM 138.3 mmol/L (137-145)
[2018-08-09] MEDS: LEVOTHYROXINE SODIUM 0.05 MG TABLET PO SCH (05:59)
[2018-08-09] MEDS: HEPARIN SOD (PORCINE) 5,000 UNIT/ML 1 ML SYRINGE SUBCUT SCH ×3 (05:59→22:04)
[2018-08-09] MEDS: ISOSORBIDE MONONITRATE 60 MG TAB.ER.24H PO SCH (10:57)
[2018-08-09] MEDS: DOCUSATE SODIUM 100 MG CAPSULE PO SCH ×2 (10:57→18:06)
[2018-08-09] MEDS: CETIRIZINE 10 MG TABLET PO SCH (10:57)
[2018-08-09] MEDS: CHOLECALCIFEROL (D3) 1,000 UNIT TABLET PO SCH (10:57)
[2018-08-09] MEDS: CLONAZEPAM 1 MG TABLET PO SCH ×2 (10:57→22:05)
[2018-08-09] MEDS: FAMOTIDINE 20 MG TABLET PO SCH ×2 (10:58→22:04)
[2018-08-09] MEDS: HYDROCHLOROTHIAZIDE 12.5 MG TABLET PO SCH (10:58)
[2018-08-09] MEDS: DOXYCYCLINE HYCLATE 100 MG TABLET PO SCH (10:58)
[2018-08-09] MEDS: VERAPAMIL HCL 180 MG TABLET.SA PO SCH (10:58)
[2018-08-09] MEDS: FLUTICASONE NASAL SPRAY 50 MCG/SPRY 120 SPRAY/16 GM NASL SCH (10:59)
--- NOTE | 2018-08-09 15:35 | PDOC PROGRESS REPORT ---
Subjective Progress Note for:: 08/08/18 Subjective:: Has been getting lightheaded when she stands. Reason For Visit: CHEST PAIN,ACUTE HYPERTENSIVE EMERGENCY,ACUTE Physical Exam Vital Signs: Temp Pulse Resp BP Pulse Ox 97.4 F 76 20 83/42 L 96 08/08/18 15:07 08/08/18 15:12 08/08/18 15:12 08/08/18 15:12 08/08/18 15:12 Intake & Output 08/07/18 08/08/18 08/09/18 06:59 06:59 07:59 Intake Total 500 675 Balance 500 675 Weight 48.1 kg 50.2 kg General appearance: PRESENT: no acute distress, cooperative, well-developed Head exam: PRESENT: normocephalic Eye exam: PRESENT: conjunctiva pink. ABSENT: scleral icterus Ear exam: PRESENT: normal external ear exam Mouth exam: PRESENT: moist, tongue midline Respiratory exam: PRESENT: clear to auscultation david, symmetrical, unlabored. ABSENT: rales, stridor, wheezes Cardiovascular exam: PRESENT: RRR, +S1, +S2, systolic murmur - 3/6 GI/Abdominal exam: PRESENT: normal bowel sounds, soft. ABSENT: distended, tenderness Rectal exam: PRESENT: deferred Gentrourinary exam: ABSENT: indwelling catheter Extremities exam: ABSENT: pedal edema Neurological exam: PRESENT: alert, awake, oriented to person, oriented to place, oriented to time, oriented to situation, CN II-XII grossly intact Psychiatric exam: PRESENT: appropriate affect, normal mood. ABSENT: agitated, anxious Focused psych exam: ABSENT: delusional, restlessness Results Laboratory Results: 08/08/18 05:37 08/08/18 05:37 08/08/18 08/08/18 05:37 05:37 WBC 7.0 RBC 3.93 Hgb 12.7 Hct 36.5 MCV 93 MCH 32.3 MCHC 34.7 RDW 13.1 Plt Count 161 Seg Neutrophils % 61.3 Lymphocytes % 27.2 Monocytes % 10.0 Eosinophils % 1.2 Basophils % 0.3 Absolute Neutrophils 4.3 Absolute Lymphocytes 1.9 Absolute Monocytes 0.7 Absolute Eosinophils 0.1 Absolute Basophils 0.0 Sodium 138.1 Potassium 3.7 Chloride 100 Carbon Dioxide 31 H Anion Gap 7 BUN 27 H Creatinine 0.91 Est GFR ( Amer) > 60 Est GFR (Non-Af Amer) 59 L Glucose 87 Calcium 9.1 Magnesium 2.4 H Total Bilirubin 0.3 AST 27 ALT 29 Alkaline Phosphatase 71 Total Protein 6.2 L Albumin 3.6 08/06/18 08/06/18 08/06/18 15:33 15:33 20:15 Creatine Kinase 83 CK-MB (CK-2) 1.29 Troponin I 0.013 0.020 NT-Pro-B Natriuret Pep 08/07/18 08/07/18 08/07/18 02:15 02:15 08:16 Creatine Kinase 128 179 H CK-MB (CK-2) 1.76 Troponin I 0.040 NT-Pro-B Natriuret Pep 08/07/18 08/07/18 08/07/18 08:16 14:15 14:15 Creatine Kinase 184 H CK-MB (CK-2) 1.39 1.15 Troponin I 0.022 0.013 NT-Pro-B Natriuret Pep 386 08/07/18 08/07/18 19:58 19:58 Creatine Kinase 181 H CK-MB (CK-2) 0.84 Troponin I 0.015 NT-Pro-B Natriuret Pep Impressions: Chest X-Ray 08/06/18 14:55 IMPRESSION: Scarring in the lung apices. No acute findings. Abdomen/Pelvis CTA 08/06/18 18:09 IMPRESSION: Small hiatal hernia. Moderate amount of gas and fluid are in the esophagus. There is constipation which may explain apparent functional partial obstruction of the small bowel, versus ileus. No transition point is identified. Narrowing of the AMANDA origin. See additional findings above. Chest/Abdomen CTA 08/06/18 18:09 IMPRESSION: Small hiatal hernia. Moderate amount of gas and fluid are in the esophagus. There is constipation which may explain apparent functional partial obstruction of the small bowel, versus ileus. No transition point is identified. Narrowing of the AMANDA origin. See additional findings above. Assessment & Plan - Diagnosis (1) Chest pain Qualifiers: Chest pain type: unspecified Qualified Code(s): R07.9 - Chest pain, unspecified Is this a current diagnosis for this admission?: Yes Plan: With the exception of a troponin of 0.04 although the troponins were less than 0.034. No acute EKG changes. Patient did not exhibit an acute coronary episode. Please also see cardiology note. Will determine additional testing such as stress test and whether or not it should be done inpatient or outpatient based on her progress. (2) Elevated troponin Is this a current diagnosis for this admission?: Yes Plan: Minimally elevated. Subsequently normalized. (3) Hypertensive emergency Is this a current diagnosis for this admission?: Yes Plan: Seems to be stable on the verapamil, hydrochlorothiazide and Imdur has been added. (4) Hypothyroidism Qualifiers: Hypothyroidism type: unspecified Qualified Code(s): E03.9 - Hypothyroidism, unspecified Is this a current diagnosis for this admission?: Yes Plan: Continue same levothyroxine. (5) Gait abnormality Is this a current diagnosis for this admission?: Yes Plan: The nurses observed the patient walking earlier. She was attending to the list to the left somewhat. The nurse got the patient up and we walked her out into the hallway and back. She was very slow but not terribly unsteady on her feet. I have asked physical therapy to see her. It is likely that she may be able to go home soon. - Time Time Spent with patient: 15-24 minutes Medications reviewed and adjusted accordingly: Yes Anticipated discharge: Home with Homehealth
--- NOTE | 2018-08-09 15:43 | PDOC PROGRESS REPORT ---
Subjective Progress Note for:: 08/09/18 Subjective:: The patient has a fine light pink macular rash on her chest arms and back. She was just started on Imdur yesterday. She is also on doxycycline. In general, she reports that she feels quite good. Reason For Visit: CHEST PAIN,ACUTE HYPERTENSIVE EMERGENCY,ACUTE Physical Exam Vital Signs: Temp Pulse Resp BP Pulse Ox 97.5 F 71 18 143/83 H 95 08/09/18 07:29 08/09/18 07:29 08/09/18 07:29 08/09/18 07:29 08/09/18 07:29 Intake & Output 08/08/18 08/09/18 08/10/18 05:59 06:59 06:59 Intake Total Balance Weight General appearance: PRESENT: no acute distress, cooperative, well-developed Head exam: PRESENT: normocephalic Eye exam: PRESENT: conjunctiva pink. ABSENT: scleral icterus Ear exam: PRESENT: normal external ear exam Mouth exam: PRESENT: moist, tongue midline Respiratory exam: PRESENT: clear to auscultation david, symmetrical, unlabored. ABSENT: accessory muscle use, rales, rhonchi, wheezes Cardiovascular exam: PRESENT: RRR, +S1, +S2, systolic murmur - 3/6 GI/Abdominal exam: PRESENT: normal bowel sounds, soft. ABSENT: distended, tenderness Rectal exam: PRESENT: deferred Gentrourinary exam: ABSENT: indwelling catheter Extremities exam: ABSENT: pedal edema Neurological exam: PRESENT: alert, awake, oriented to person, oriented to place, oriented to time, oriented to situation Psychiatric exam: PRESENT: appropriate affect, normal mood. ABSENT: agitated, anxious Focused psych exam: ABSENT: delusional, restlessness Results Laboratory Results: 08/09/18 04:02 08/09/18 04:02 08/09/18 08/09/18 04:02 04:02 WBC 7.8 RBC 3.78 Hgb 12.1 Hct 35.0 L MCV 93 MCH 31.9 MCHC 34.5 RDW 13.3 Plt Count 158 Sodium 138.3 Potassium 3.5 L Chloride 101 Carbon Dioxide 28 Anion Gap 9 BUN 24 H Creatinine 0.86 Est GFR ( Amer) > 60 Est GFR (Non-Af Amer) > 60 Glucose 107 Calcium 9.4 Magnesium 2.3 08/06/18 08/06/18 08/06/18 15:33 15:33 20:15 Creatine Kinase 83 CK-MB (CK-2) 1.29 Troponin I 0.013 0.020 NT-Pro-B Natriuret Pep 08/07/18 08/07/18 08/07/18 02:15 02:15 08:16 Creatine Kinase 128 179 H CK-MB (CK-2) 1.76 Troponin I 0.040 NT-Pro-B Natriuret Pep 08/07/18 08/07/18 08/07/18 08:16 14:15 14:15 Creatine Kinase 184 H CK-MB (CK-2) 1.39 1.15 Troponin I 0.022 0.013 NT-Pro-B Natriuret Pep 386 08/07/18 08/07/18 19:58 19:58 Creatine Kinase 181 H CK-MB (CK-2) 0.84 Troponin I 0.015 NT-Pro-B Natriuret Pep Impressions: Chest X-Ray 08/06/18 14:55 IMPRESSION: Scarring in the lung apices. No acute findings. Abdomen/Pelvis CTA 08/06/18 18:09 IMPRESSION: Small hiatal hernia. Moderate amount of gas and fluid are in the esophagus. There is constipation which may explain apparent functional partial obstruction of the small bowel, versus ileus. No transition point is identified. Narrowing of the AMANDA origin. See additional findings above. Chest/Abdomen CTA 08/06/18 18:09 IMPRESSION: Small hiatal hernia. Moderate amount of gas and fluid are in the esophagus. There is constipation which may explain apparent functional partial obstruction of the small bowel, versus ileus. No transition point is identified. Narrowing of the AMANDA origin. See additional findings above. Assessment & Plan - Diagnosis (1) Drug rash Is this a current diagnosis for this admission?: Yes Plan: There is a fine maculopapular rash over the chest, back and on the arms. The patient has recently been started on doxycycline and was started on Imdur yesterday. The more likely suspect is doxycycline. We will hold the doxy cycline and reassess the rash tomorrow. (2) Chest pain Qualifiers: Chest pain type: unspecified Qualified Code(s): R07.9 - Chest pain, unspecified Is this a current diagnosis for this admission?: Yes Plan: With the exception of a troponin of 0.04 although the troponins were less than 0.034. No acute EKG changes. Patient did not exhibit an acute coronary episode. The patient did not have any exertional chest pain when ambulating. Will discuss case with cardiology regarding inpatient or outpatient stress testing. If the patient remains asymptomatic she may be able to go home tomorrow with home health. (3) Elevated troponin Is this a current diagnosis for this admission?: Yes Plan: Resolved. Troponin normal. (4) Hypertensive emergency Is this a current diagnosis for this admission?: Yes Plan: Much improved. In fact I had to discontinue the hydralazine. We will continue the verapamil, hydrochlorothiazide and Imdur. (5) Hypothyroidism Qualifiers: Hypothyroidism type: unspecified Qualified Code(s): E03.9 - Hypothyroidism, unspecified Is this a current diagnosis for this admission?: Yes Plan: Continue levothyroxine. (6) Hypokalemia Is this a current diagnosis for this admission?: Yes Plan: The patient is a 3.5 mEq in the lower limit of normal is 3.6. I am going to recheck tomorrow before adding potassium chloride to the patient's regimen and possibly causing hyperkalemia. - Time Time Spent with patient: 15-24 minutes Medications reviewed and adjusted accordingly: Yes Anticipated discharge: Home with Homehealth Within: within 48 hours - Plan Summary Plan Summary: Patient ambulated. Unsteady moments with a front wheel walker. No chest pain. Consider discharge with home health tomorrow.
--- NOTE | 2018-08-09 15:57 | Progress Note ---
Provider Note Provider Note: CARDIOLOGY PROGRESS NOTE by Dr. Jenny Ball on 08/09/2018. SUBJECTIVE: The patient denies any further chest pain or discomfort. There is no arrhythmias seen on the monitor. There is no TIA CVA symptoms. There is no near syncope syncope. Note that the patient is developed itching drug rash on her body. Most likely secondary to doxycycline. There is no shortness of breath. There is no PND orthopnea. There is no atrial or ventricular arrhythmia seen on the monitor. On examination the patient is a frail build. She is in no acute distress. She is well-groomed. Selected Entries 08/09/18 07:29 Temperature 97.5 F Temperature Axillary Source Pulse Rate 71 Respiratory 18 Rate Blood Pressure 143/83 H Blood Pressure 103 Mean BP Location Left Arm BP Position Supine O2 Sat by Pulse 95 Oximetry Oxygen Delivery Room Air Method HEAD: Is atraumatic normocephalic. EYES: Pupils equal round regular reactive to light accommodation. Extraocular movements are normal. There is no conjunctival pallor. There is no scleral icterus. EARS: Tympanic membranes are intact. External auditory canals are clear. NOSE: Nasal mucous membranes are without any inflammation. There is no deviated nasal septum. MOUTH: Mucous membranes of the mouth are moist. Tongue is moist. There is no ulcers. There is no bleeding from the gums. THROAT: There is no redness of the oropharynx. There is no exudates. SKIN: There is no particular ecchymosis. There is no skin rash or skin lesions. NECK: Is supple. There is no JVD. Carotids are equal there is no bruit. There is no lymphadenopathy. There is no goiter. There is no accessory muscle respiration is use. Trachea central. LUNGS: Is clear to auscultation and percussion without any rhonchi rales or wheezing. On palpation there is no chest wall tenderness. HEART: S1-S2 is heard. There is no S3 gallop. There is no S4 gallop. Systolic murmur left sternal border and the apex there is no rub. ABDOMEN: Is soft. Nontender there is no hepatosplenomegaly. Bowel sounds are well heard. There is no tender areas of masses. There is no rebound guarding or rigidity. EXTREMITIES: Femorals are well felt. There is no femoral bruits. Leg pulses well felt. There is no pedal edema. There is no DVT or cellulitis. There is no calf tenderness. There is no cyanosis or clubbing. Capillary refill is normal. SPRAY II PAINTER: The patient is conscious awake alert oriented x3 with no focal deficits. PSYCHIATRIC: The patient judgment insight are intact although she is slightly forgetful.. The patient does not appear to be agitated or depressed. Labs- All tests 24 hr 08/09/18 08/09/18 04:02 04:02 WBC 7.8 RBC 3.78 Hgb 12.1 Hct 35.0 L MCV 93 MCH 31.9 MCHC 34.5 RDW 13.3 Plt Count 158 Sodium 138.3 Potassium 3.5 L Chloride 101 Carbon Dioxide 28 Anion Gap 9 BUN 24 H Creatinine 0.86 Est GFR ( Amer) > 60 Est GFR (Non-Af Amer) > 60 Glucose 107 Calcium 9.4 Magnesium 2.3 Chest X-Ray 08/06/18 14:55 IMPRESSION: Scarring in the lung apices. No acute findings. Abdomen/Pelvis CTA 08/06/18 18:09 IMPRESSION: Small hiatal hernia. Moderate amount of gas and fluid are in the esophagus. There is constipation which may explain apparent functional partial obstruction of the small bowel, versus ileus. No transition point is identified. Narrowing of the AMANDA origin. See additional findings above. Chest/Abdomen CTA 08/06/18 18:09 IMPRESSION: Small hiatal hernia. Moderate amount of gas and fluid are in the esophagus. There is constipation which may explain apparent functional partial obstruction of the small bowel, versus ileus. No transition point is identified. Narrowing of the AMANDA origin. See additional findings above. IMPRESSION/RECOMMENDATION: 1. Chest pain: No evidence of myocardial infarction, and no ischemic changes on the EKG. Will recommend continue the patient on aspirin, and current medications. Including verapamil. Would recommend a change the patient's isosorbide dinitrate to isosorbide mononitrate once a day. [Note Evelyn Sorbide dinitrate has to be given twice daily with the doses 6 hours apart]. Patient does have multiple CAD risk factors, namely age and hypertension. No evidence of acute myocardial infarction. Note that the chest pain may have been due to t he patient's hypertensive urgency when she was admitted. 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 2. Syncope: Most likely secondary to sudden drop of blood pressure after blood pressure medications. 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 3. Hypertension: Patient hypertension is complicated by postural hypotension. 4. Hypothyroidism: Continue replacement. 5. Asthma: No definite evidence of acute exacerbation of asthma., Or acute asthmatic attack. 6. Drug rash: Most likely doxycycline note doxycycline has been stopped by me. Medications reviewed. Medications readjusted. Medical decision making is of moderate to high complexity. Discussed the option of stress test with the patient and getting an echocardiogram. The patient just wants to go home, and wants to be treated medically. Will rediscuss this with the patient. The patient is a full code. Her son is a surrogate healthcare decision maker. Note 40 minutes spent on this patient more than 50% time spent in direct patient care. Will follow.
[2018-08-09] MEDS: MONTELUKAST SODIUM 10 MG TABLET PO SCH (22:04)
[2018-08-10] MEDS: HEPARIN SOD (PORCINE) 5,000 UNIT/ML 1 ML SYRINGE SUBCUT SCH ×2 (06:11→14:23)
[2018-08-10] MEDS: LEVOTHYROXINE SODIUM 0.05 MG TABLET PO SCH (06:11)
[2018-08-10 06:12] LABS: ANION GAP 8 (5-19); BLOOD UREA NITROGEN 24 mg/dL (7-20); CALCIUM 9.2 mg/dL (8.4-10.2); CARBON DIOXIDE 30 mmol/L (22-30); CHLORIDE 101 mmol/L (98-107); GLUCOSE 94 mg/dL (75-110); POTASSIUM 3.4 mmol/L (3.6-5.0)
[2018-08-10 07:54] VITALS: BP 155/84
[2018-08-10] MEDS: ISOSORBIDE MONONITRATE 60 MG TAB.ER.24H PO SCH (11:06)
[2018-08-10] MEDS: DOCUSATE SODIUM 100 MG CAPSULE PO SCH (11:06)
[2018-08-10] MEDS: CHOLECALCIFEROL (D3) 1,000 UNIT TABLET PO SCH (11:06)
[2018-08-10] MEDS: CLONAZEPAM 1 MG TABLET PO SCH (11:06)
[2018-08-10] MEDS: FAMOTIDINE 20 MG TABLET PO SCH (11:06)
[2018-08-10] MEDS: CETIRIZINE 10 MG TABLET PO SCH (11:06)
[2018-08-10] MEDS: FLUTICASONE NASAL SPRAY 50 MCG/SPRY 120 SPRAY/16 GM NASL SCH (11:07)
[2018-08-10] MEDS: HYDROCHLOROTHIAZIDE 12.5 MG TABLET PO SCH (11:07)
[2018-08-10] MEDS: VERAPAMIL HCL 180 MG TABLET.SA PO SCH (11:08)
--- NOTE | 2018-08-10 14:37 | PDOC TRANSFER SUMMARY ---
General - Admit/Disc Date/PCP Admission Date/Primary Care Provider: 08/06/18 22:25 CHANTEL MURDOCK MD Discharge Date: 08/10/18 - Discharge Diagnosis (1) Chest pain Is this a current diagnosis for this admission?: Yes Summary: The patient presented with complaint of chest pain. She had no further episodes of chest pain while admitted and none was elicited during ambulation. Patient does complain of significant dyspepsia. No acute EKG changes were noted; patient was observed on continuous cardiac telemetry without concerning findings. Serial troponins were monitored; peaked at 0.040 and then trended downward. CTA of the chest and abdomen revealed a small hiatal hernia with a moderate amount of gas and fluid in the esophagus. Cardiology was consulted; no evidence of acute PR. Medications adjusted per Dr. Thomas's recommendations. Continue daily aspirin and statin therapy. Change to Isosorbide mononitrate for once daily dosing. Continue protonix and reglan for management of possible esophageal/reflux causes of chest discomfort. (2) Drug rash Is this a current diagnosis for this admission?: Yes Summary: Resolved following discontinuation of doxycycline. Recommend listing doxycycline as a drug allergy. (3) Elevated troponin Is this a current diagnosis for this admission?: Yes Summary: Resolved. Indeterminately peaked at 0.040; then trended down. (4) Hypertensive emergency Is this a current diagnosis for this admission?: Yes Summary: Resolved. The patient is currently normotensive on verapamil, hydrochlorothiazide, and Imdur. (5) Hypokalemia Is this a current diagnosis for this admission?: Yes Summary: Borderline; K 3.9-> 3.5-> 3.7-> 3.5-> 3.4 Started on oral replacement. Recommend repeat chemistry in 3-5 days. (6) Hypothyroidism Is this a current diagnosis for this admission?: Yes Summary: Acceptable thyroid panel. Continue home dose levothyroxine. - Additional Information Resuscitation Status: Do Not Resuscitate Discharge Diet: Cardiac Discharge Activity: Activity As Tolerated, Balance Activity w/Rest, Slowly I ncrease Activity Prescriptions: Aspirin [Ecotrin 81 mg EC Tablet] 81 mg PO DAILY #90 tab Clonazepam [Klonopin 1 mg Tablet] 0.5 mg PO Q12 #14 tablet Hydrochlorothiazide [Hydrodiuril 12.5 mg Tablet] 12.5 mg PO DAILY #30 tablet Isosorbide Mononitrate [Imdur 60 mg Tablet.er] 30 mg PO DAILY #30 tab.er.24h Metoclopramide HCl [Reglan] 5 mg PO ACHS #120 tablet Potassium Chloride [Klor-Con M10] 10 meq PO DAILY #30 tab.er.prt Verapamil HCl [Calan Sr 180 mg Tablet.sa] 360 mg PO QAM #60 tablet.sa Home Medications: Ergocalciferol (Vitamin D2) [Drisdol 50,000 unit (1.25MG) Capsule] 1 tab PO Q14D PRN 08/06/18 Levothyroxine Sodium [Synthroid 0.05 mg Tablet] 1 tab PO DAILY 08/06/18 Albuterol Sulfate [Proair HFA Inhalation Aerosol 8.5 gm MDI] 2 puff IH Q4HP PRN 08/07/18 Azelastine HCl 1 spray NASL DAILY 08/07/18 Fluticasone Propionate [Flonase Nasal Deary 50 Mcg/Deary 16 gm] 1 spray NASL DAILY 08/07/18 Pantoprazole Sodium [Protonix] 40 mg PO BID 08/07/18 Acetaminophen [Tylenol 325 mg Tablet] 650 mg PO Q4HP PRN tablet 08/10/18 Aspirin [Ecotrin 81 mg EC Tablet] 81 mg PO DAILY #90 tab 08/10/18 Cetirizine HCl [Zyrtec 10 mg Tablet] 10 mg PO DAILY tablet 08/10/18 Cholecalciferol (Vitamin D3) [Vitamin D3 1000 Unit Tablet] 2,000 unit PO DAILY tablet 08/10/18 Clonazepam [Klonopin 1 mg Tablet] 0.5 mg PO Q12 #14 tablet 08/10/18 Fluticasone Propionate [Flonase Nasal Deary 50 Mcg/Deary 16 gm] 1 spray NASL DAILY spray.pump 08/10/18 Hydrochlorothiazide [Hydrodiuril 12.5 mg Tablet] 12.5 mg PO DAILY #30 tablet 08/10/18 Isosorbide Mononitrate [Imdur 60 mg Tablet.er] 30 mg PO DAILY #30 tab.er.24h 08/10/18 Metoclopramide HCl [Reglan] 5 mg PO ACHS #120 tablet 08/10/18 Montelukast Sodium [Singulair 10 mg Tablet] 10 mg PO QHS tablet 08/10/18 Potassium Chloride [Klor-Con M10] 10 meq PO DAILY #30 tab.er.prt 08/10/18 Verapamil HCl [Calan Sr 180 mg Tablet.sa] 360 mg PO QAM #60 tablet.sa 08/10/18 History of Present Illness Admission Date/PCP: 08/06/18 22:25 CHANTEL MURDOCK MD History of Present Illness: H&P per Dr. Roche: RHODA ALBRIGHT is a 83 year old female presented to the emergency room with a 7-day history of intermittent chest pains. She admitted several episodes of chest pain over the last 7 days, occurring once a day at various times usually associated with activity, becoming longer in duration and more intense over time. Her last episode was earlier today prior to coming to the emergency room and was described as a continuous, moderately severe, heavy pressure sensation in her substernal chest and epigastric area with radiation as a sharp, severe pain to her back and then up into her neck and shoulders. The pain generally occurs with activity and is resolved by rest. Her pain was accompanied by dyspnea which also resolved after a short period of rest. She admits a history of previous hypertensive crises but not any prior episodes of chest pain. She has not identified any additional aggravating or alleviating factors for her chest pain. In the emergency room her chest pain was resolved prior to her arrival but she was noted to be significantly hypertensive with a blood pressure of 220/120. During her ER evaluation she suffered a syncopal episode and became hypotensive at that time. Her blood pressure recovered with IV fluids and close observation over a very brief interval. Her initial cardiac enzymes and EKG were negative for myocardial ischemia or injury. Patient was subsequently admitted to the hospital for further evaluation and treatment. Physical Exam Vital Signs: Temp Pulse Resp BP Pulse Ox 97.4 F 67 16 155/84 H 92 08/10/18 07:44 08/10/18 07:44 08/10/18 07:44 08/10/18 07:44 08/10/18 07:44 Intake & Output 08/09/18 08/10/18 08/11/18 06:59 06:59 06:59 Output Total 200 Balance -200 Weight 48.9 kg General appearance: PRESENT: no acute distress, cooperative, thin, well- developed, well-nourished Head exam: PRESENT: atraumatic, normocephalic Eye exam: PRESENT: conjunctiva pink, EOMI, PERRLA. ABSENT: scleral icterus Ear exam: PRESENT: normal external ear exam Mouth exam: PRESENT: moist, tongue midline Neck exam: ABSENT: carotid bruit, JVD, lymphadenopathy, thyromegaly Respiratory exam: PRESENT: clear to auscultation david, symmetrical, unlabored. ABSENT: rales, rhonchi, wheezes Cardiovascular exam: PRESENT: RRR, +S1, +S2. ABSENT: diastolic murmur, rubs, systolic murmur Pulses: PRESENT: normal dorsalis pedis pul Vascular exam: PRESENT: normal capillary refill GI/Abdominal exam: PRESENT: normal bowel sounds, soft. ABSENT: distended, guarding, mass, organolmegaly, rebound, tenderness Rectal exam: PRESENT: deferred Extremities exam: PRESENT: full ROM. ABSENT: calf tenderness, clubbing, pedal edema Neurological exam: PRESENT: alert, awake, oriented to person, oriented to place, oriented to time, oriented to situation, CN II-XII grossly intact. ABSENT: motor sensory deficit Psychiatric exam: PRESENT: appropriate affect, normal mood. ABSENT: homicidal ideation, suicidal ideation Skin exam: PRESENT: dry, intact, warm. ABSENT: cyanosis, rash Results Laboratory Results: 08/09/18 04:02 08/10/18 03:57 08/10/18 03:57 Sodium 139.0 Potassium 3.4 L Chloride 101 Carbon Dioxide 30 Anion Gap 8 BUN 24 H Creatinine 0.71 Est GFR ( Amer) > 60 Est GFR (Non-Af Amer) > 60 Glucose 94 Calcium 9.2 Magnesium 2.1 08/06/18 08/06/18 08/06/18 15:33 15:33 20:15 Creatine Kinase 83 CK-MB (CK-2) 1.29 Troponin I 0.013 0.020 NT-Pro-B Natriuret Pep 08/07/18 08/07/18 08/07/18 02:15 02:15 08:16 Creatine Kinase 128 179 H CK-MB (CK-2) 1.76 Troponin I 0.040 NT-Pro-B Natriuret Pep 08/07/18 08/07/18 08/07/18 08:16 14:15 14:15 Creatine Kinase 184 H CK-MB (CK-2) 1.39 1.15 Troponin I 0.022 0.013 NT-Pro-B Natriuret Pep 386 08/07/18 08/07/18 19:58 19:58 Creatine Kinase 181 H CK-MB (CK-2) 0.84 Troponin I 0.015 NT-Pro-B Natriuret Pep Impressions: Chest X-Ray 08/06/18 14:55 IMPRESSION: Scarring in the lung apices. No acute findings. Abdomen/Pelvis CTA 08/06/18 18:09 IMPRESSION: Small hiatal hernia. Moderate amount of gas and fluid are in the esophagus. There is constipation which may explain apparent functional partial obstruction of the small bowel, versus ileus. No transition point is identified. Narrowing of the AMANDA origin. See additional findings above. Chest/Abdomen CTA 08/06/18 18:09 IMPRESSION: Small hiatal hernia. Moderate amount of gas and fluid are in the esophagus. There is constipation which may explain apparent functional partial obstruction of the small bowel, versus ileus. No transition point is identified. Narrowing of the AMANDA origin. See additional findings above. Transfer Plan - Time Spent with Patient Time spent with patient: Less than 30 Minutes Qualifiers - * PATIENT BEING DISCHARGED WITH ANY OF THE FOLLOWING DIAGNOSIS: No Plan Discharge Plan: Discharge to SNF for short-term rehabilitation. Recommend home health nursing upon discharge from their facility. Recommend repeat chemistry within the next 3-5 days. Follow-up with primary care provider within 1 week of discharge from SNF. Recommend outpatient referral to special needs tutor. Take medications as prescribed. Change positions slowly, drink plenty of water. Return to the emergency department as needed for concerning symptoms. Time Spent: Greater than 30 Minutes
--- NOTE | 2018-08-10 22:07 | Progress Note ---
Provider Note Provider Note: CARDIOLOGY PROGRESS NOTE by Dr. Jenny Ball on 08/10/2018. SUBJECTIVE: The patient denies any chest pain or discomfort. There is no shortness of breath there is no PND orthopnea. The patient's able to walk with a walker but her gait is unsteady. There is no TIA CVA symptoms. There is no cough or wheezing. She has no symptoms a UTI. Note that the patient's rash has resolved. She is anxious to go home. PHYSICAL EXAMINATION: The patient is a frail build. She is well-groomed. In no acute distress. Selected Entries 08/10/18 07:44 Temperature 97.4 F Temperature Oral Source Pulse Rate 67 Respiratory 16 Rate Blood Pressure 155/84 H Blood Pressure 107 Mean BP Location Right Arm BP Position Supine O2 Sat by Pulse 92 Oximetry Oxygen Delivery Room Air Method HEAD: Is atraumatic normocephalic. EYES: Pupils equal round regular reactive to light accommodation. Extraocular movements are normal. There is no conjunctival pallor. There is no scleral icterus. EARS: Tympanic membranes are intact. External auditory canals are clear. NOSE: Nasal mucous membranes are without any inflammation. There is no deviated nasal septum. MOUTH: Mucous membranes of the mouth are moist. Tongue is moist. There is no ulcers. There is no bleeding from the gums. THROAT: There is no redness of the oropharynx. There is no exudates. SKIN: There is no particular ecchymosis. There is no skin rash or skin lesions. NECK: Is supple. There is no JVD. Carotids are equal there is no bruit. There is no lymphadenopathy. There is no goiter. There is no accessory muscle respiration is use. Trachea central. LUNGS: Is clear to auscultation and percussion without any rhonchi rales or wheezing. On palpation there is no chest wall tenderness. HEART: S1-S2 is heard. There is no S3 gallop. There is no S4 gallop. Systolic murmur left sternal border and the apex there is no rub. ABDOMEN: Is soft. Nontender there is no hepatosplenomegaly. Bowel sounds are well heard. There is no tender areas of masses. There is no rebound guarding or rigidity. EXTREMITIES: Femorals are well felt. There is no femoral bruits. Leg pulses well felt. There is no pedal edema. There is no DVT or cellulitis. There is no calf tenderness. There is no cyanosis or clubbing. Capillary refill is normal. DIRECTOR INPATIENT HEADACHE PROGRAM: The patient is conscious awake alert oriented x3 with no focal deficits. PSYCHIATRIC: The patient judgment insight are intact although she is slightly forgetful.. The patient does not appear to be agitated or depressed. 08/10/18 03:57 Sodium 139.0 Potassium 3.4 L Chloride 101 Carbon Dioxide 30 Anion Gap 8 BUN 24 H Creatinine 0.71 Est GFR (Non-Af Amer) > 60 Glucose 94 Calcium 9.2 Magnesium 2.1 IMPRESSION/RECOMMENDATION: 1. Chest pain: No evidence of myocardial infarction, and no ischemic changes on the EKG. Will recommend continue the patient on aspirin, and current medications. Including verapamil. Would recommend a change the patient's isosorbide dinitrate to isosorbide mononitrate once a day. [Note Evelyn Sorbide dinitrate has to be given twice daily with the doses 6 hours apart]. Patient does have multiple CAD risk factors, namely age and hypertension. No evidence of acute myocardial infarction. Note that the chest pain may have been due to the patient's hypertensive urgency when she was admitted. 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 The patient's chest pain has resolved. Since admission has not had chest pain. The patient does not want to have a stress test or an echocardiogram. 2. Syncope: Most likely secondary to sudden drop of blood pressure after blood pressure medications. 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 3. Hypertension: Patient hypertension is complicated by postural hypotension. 4. Hypothyroidism: Continue replacement. 5. Asthma: No definite evidence of acute exacerbation of asthma., Or acute asthmatic attack. 6. Drug rash: Most likely doxycycline note doxycycline has been stopped by me. This is resolved Medications reviewed. Medications readjusted. Medical decision making is of moderate to high complexity. Discussed the option of stress test with the patient and getting an echocardiogram. The patient just wants to go home, and wants to be treated medically. Will rediscuss this with the patient. The patient is a full code. Her son is a surrogate healthcare decision maker. Note 40 minutes spent on this patient more than 50% time spent in direct patient care. Will sign off and follow the patient in the office. Contact numbers given.
== END 2018-08-10 17:15 | DRG 305 ==
LOC: ER 14:15 → EH 22:25 → 3N 08-07 00:39
PROVIDERS: ADMIT Internal Medicine; ATTEND Internal Medicine
DX: I16.1 Hypertensive emergency (principal); E03.9 Hypothyroidism, unspecified; K21.9 Gastro-esophageal reflux disease without esophagitis; E87.6 Hypokalemia; R07.89 Other chest pain; F32.9 Major depressive disorder, single episode, unspecified; F41.9 Anxiety disorder, unspecified; J30.9 Allergic rhinitis, unspecified; Z66 Do not resuscitate; R74.8 Abnormal levels of other serum enzymes; R55 Syncope and collapse; I10 Essential (primary) hypertension; R26.9 Unspecified abnormalities of gait and mobility; I95.9 Hypotension, unspecified; L27.1 Localized skin eruption due to drugs and medicaments taken internally; T36.4X5A Adverse effect of tetracyclines, initial encounter; Y92.239 Unspecified place in hospital as the place of occurrence of the external cause; Z90.49 Acquired absence of other specified parts of digestive tract; Z90.710 Acquired absence of both cervix and uterus; Z79.82 Long term (current) use of aspirin; Z79.899 Other long term (current) drug therapy
CPT/HCPCS: 36415; 71045; 71275; 74174; 80048; 80053; 80061; 81001; 82306; 82550; 82553; 83735; 83880; 84439; 84443; 84481; 84484; 85025; 85027; 93005; 93010; 96360; 99291; J1644; J3360; J3490; J7040

== ENCOUNTER → 2019-03-24 | Outpatient (CLI) | payer MEDICARE, OTHER ==
[2019-03-24 10:44] LABS: ABSOLUTE EOSINOPHILS # (AUTO) 0.1 10^3/uL (0.0-0.6); ABSOLUTE LYMPHOCYTES (AUTO) 2.5 10^3/uL (0.5-4.7); ABSOLUTE MONOCYTES (AUTO) 0.6 10^3/uL (0.1-1.4); ABSOLUTE NEUT (AUTO) 4.7 10^3/uL (1.7-8.2); BASOPHILS % (AUTO) 0.3 % (0-2); EOSINOPHILS % (AUTO) 0.7 % (0-6); HEMATOCRIT 43.7 % (36.0-47.0); HEMOGLOBIN 14.6 g/dL (12.0-15.5); MEAN CORPUSCULAR HEMOGLOBIN 31.1 pg (27.0-33.4); MEAN CORPUSCULAR HGB CONC 33.3 g/dL (32.0-36.0); MEAN CORPUSCULAR VOLUME 93 fl (80-97); MONOCYTES % (AUTO) 7.4 % (3-13); PLATELET COUNT 207 10^3/uL (150-450); RED BLOOD COUNT 4.69 10^6/uL (3.72-5.28); RED CELL DISTRIBUTION WIDTH 13.3 % (11.5-14.0); SEGMENTED NEUTROPHILS % (AUTO) 59.6 % (42-78); TOTAL CELLS COUNTED % (AUTO) 100 %
[2019-03-24 11:05] LABS: ALBUMIN 4.4 g/dL (3.5-5.0); ALKALINE PHOSPHATASE 88 U/L (38-126); ANION GAP 11 (5-19); ASPARTATE AMINO TRANSFERASE 25 U/L (14-36); BILIRUBIN,DIRECT 0.1 mg/dL (0.0-0.4); BILIRUBIN,TOTAL 0.5 mg/dL (0.2-1.3); BLOOD UREA NITROGEN 19 mg/dL (7-20); CALCIUM 9.1 mg/dL (8.4-10.2); CARBON DIOXIDE 31 mmol/L (22-30); CHLORIDE 99 mmol/L (98-107); CHOLESTEROL 235.54 mg/dL (0-200); GLUCOSE 83 mg/dL (75-110); POTASSIUM 3.8 mmol/L (3.6-5.0); TOTAL PROTEIN 7.9 g/dL (6.3-8.2); TRIGLYCERIDES 116 mg/dL (<150)
[2019-03-24 11:20] LABS: DIRECT LDL 129 mg/dL (<100)
== END ==
LOC: OD 09:31
PROVIDERS: ATTEND Internal Medicine
DX: I10 Essential (primary) hypertension (principal); E03.9 Hypothyroidism, unspecified; E78.5 Hyperlipidemia, unspecified; R53.83 Other fatigue
CPT/HCPCS: 36415; 80053; 80061; 83735; 84443; 85025